=== PATIENT | female | born 1930 | race Caucasian/White ===

== ENCOUNTER 2017-12-11 16:13 | Observation (INO) | payer OTHER ==
[~2017-12-11] VITALS: Ht 167.6 cm; Wt 49.6 kg
[2017-12-11] MEDS ORDERED: ASPIRIN 81 MG CHEW TAB PO ONE ×2 (16:45→17:45)
[2017-12-11 16:52] LABS: BASOPHILS % 0.1 % (0.0-1.0); EOSINOPHILS % 0.4 % (0.0-6.0); HEMATOCRIT 40.9 % (34.2-44.1); HEMOGLOBIN 13.3 g/dL (12.0-16.0); LYMPHOCYTES # (AUTO) 1.6 (1.0-3.2); LYMPHOCYTES % 17.1 % (18.0-39.1); MEAN CORPUSCULAR HEMOGLOBIN 28.7 pg (28-32); MEAN CORPUSCULAR HGB CONC 32.5 g/dL (31-35); MEAN CORPUSCULAR VOLUME 88.1 fL (81-99); MONOCYTES # (AUTO) 0.7 (0.2-0.8); MONOCYTES % 7.4 % (4.4-11.3); NEUTROPHILS % 74.6 % (38.7-80.0); PLATELET COUNT 191 x10e3/uL (140-360); RED BLOOD COUNT 4.64 x10e6/uL (3.6-5.1); RED CELL DISTRIBUTION WIDTH 13.1 % (11.7-14.4)
[2017-12-11 17:05] LABS: INR 2.41; PARTIAL THROMBOPLASTIN TIME 38.3 seconds (23.8-35.5)
[2017-12-11] MEDS ORDERED: NIACIN500 M2 PO (17:11)
[2017-12-11] MEDS ORDERED: OSTEO BI-FLEX1 EAC2 (17:11)
[2017-12-11] MEDS ORDERED: DOCUSATE SODIU100 M1 (17:11)
[2017-12-11] MEDS ORDERED: CILOSTAZOL100 MG PO (17:11)
[2017-12-11] MEDS ORDERED: LOSARTAN POTASS25 MG (17:11)
[2017-12-11] MEDS ORDERED: METOPROLOL TART50 MG PO (17:11)
[2017-12-11] MEDS ORDERED: WARFARIN SODIUM3 MG PO (17:11)
[2017-12-11] MEDS ORDERED: LASIX20 MG PO (17:11)
[2017-12-11] MEDS ORDERED: AMIODARONE HCL200 MG (17:11)
[2017-12-11] MEDS ORDERED: POTASSIUM CHLO10 ME1 PO (17:11)
[2017-12-11 17:14] LABS: ALANINE AMINOTRANSFERASE 28 IU/L (0-55); ALBUMIN 3.8 g/dL (3.5-5.0); ALKALINE PHOSPHATASE 84 IU/L (40-150); ANION GAP 12.6 mmol/L (8-16); BLOOD UREA NITROGEN 26 mg/dL (7-26); BUN/CREATININE RATIO 25 (6-25); CALCIUM 9.7 mg/dL (8.4-10.2); CARBON DIOXIDE 29 mmol/L (22-29); CHLORIDE 91 mmol/L (98-107); CREATINE KINASE 123 IU/L (29-168); CREATININE, SERUM 1.05 mg/dL (0.57-1.11); EST GLOMERULAR FILTRATION RATE 49 ML/MIN (60-); GLUCOSE 91 mg/dL (74-118); POTASSIUM 4.6 mmol/L (3.5-5.1); SODIUM 128 mmol/L (136-145)
[2017-12-11] MEDS ORDERED: LABETALOL HCL 5 MG/ML 20ML VIAL IV STA (17:29)
[2017-12-11] MEDS ORDERED: ONDANSETRON HCL INJ 2 MG/ML VIAL IV NR (17:58)
[2017-12-11] MEDS ORDERED: MORPHINE SULFATE 5 MG/ML VIAL IV ONE (18:00)
--- NOTE | 2017-12-11 18:00 | Diagnostic Imaging Report ---
EXAMINATION: CHEST SINGLE (PORTABLE) INDICATION: Chest pain COMPARISON: None FINDINGS: TUBES and LINES: None. LUNGS: Lungs are well inflated. Lungs are clear. There is no evidence of pneumonia or pulmonary edema. PLEURA: No pleural effusion or pneumothorax. HEART AND MEDIASTINUM: The cardiomediastinal silhouette is unremarkable. The aorta is ectatic with atherosclerotic calcifications. BONES AND SOFT TISSUES: No acute osseous lesion. Soft tissues are unremarkable. UPPER ABDOMEN: No free air under the diaphragm. IMPRESSION: 1. No acute thoracic abnormality. 2. Widening of the mediastinum is related to uncoil, tortuous, atherosclerotic aorta. If acute pathology is suspected, CTA of the chest can be obtained. Signed by: Dr. Tanvir Luo M.D. on 12/11/2017 5:57 PM
[2017-12-11] MEDS ORDERED: MORPHINE SULFATE INJ 4 MG/ML INJ ONE (18:18)
[2017-12-11] MEDS ORDERED: MORPHINE SULFATE INJ 4 MG/ML INJ IV PRN (20:45)
[2017-12-11] MEDS ORDERED: LABETALOL HCL 5 MG/ML 20ML VIAL IV PRN (20:45)
[2017-12-11 21:30] VITALS: BP 152/92
[2017-12-11 22:00] VITALS: BP 152/92
[2017-12-12 02:40] LABS: CLARITY,URINE CLOUDY (CLEAR); COLOR,URINE YELLOW (YELLOW); LEUKOCYTE ESTERASE ,URINE 2+ (NEGATIVE); NITRITE,URINE POSITIVE (NEGATIVE); PROTEIN,URINE DIPSTICK NEGATIVE (NEGATIVE)
[2017-12-12 02:41] LABS: BACTERIA,URINE MANY /HPF; BILIRUBIN,URINE NEGATIVE (NEGATIVE); EPITHELIAL CELLS,URINE FEW /LPF; KETONES,URINE NEGATIVE (NEGATIVE); URINE UROBILINOGEN 0.2 mg/dL (0.2 - 1); WBC,URINE (MAN) >50 /HPF (0-5)
[2017-12-12 02:52] LABS: CREATINE KINASE 84 IU/L (29-168)
[2017-12-12 04:45] VITALS: BP 120/74
[2017-12-12 05:54] LABS: CREATINE KINASE MB 2.8 ng/mL (0-5.0)
[2017-12-12 06:00] LABS: CHOL/HDL RATIO 2.4 (3.0-3.6)
[2017-12-12 07:30] VITALS: BP 142/97
[2017-12-12] MEDS ORDERED: ACETAMINOPHEN 325 MG TAB PO PRN (08:15)
[2017-12-12 08:44] LABS: THYROID STIMULATING HORMONE 1.889 uIU/mL (0.350-4.940)
[2017-12-12] MEDS ORDERED: MAGNESIUM HYDROXIDE 30 ML UDC PO PRN (08:45)
[2017-12-12] MEDS ORDERED: BISACODYL 10 MG SUPP PR PRN (08:45)
[2017-12-12] MEDS: AMIODARONE HCL 200 MG TAB PO SCH ×2 (08:58→17:00)
[2017-12-12] MEDS: FUROSEMIDE 20 MG TAB PO SCH ×2 (08:58→17:00)
[2017-12-12] MEDS: LOSARTAN POTASSIUM 25 MG TAB PO SCH ×2 (08:59→17:00)
[2017-12-12] MEDS: POTASSIUM CHLORIDE 10MEQ EA PO SCH ×2 (09:00→17:00)
[2017-12-12] MEDS: CILOSTAZOL 100 MG TAB PO SCH ×2 (09:00→17:00)
[2017-12-12] MEDS: SENNOSIDES 8.6 MG TAB PO SCH ×3 (09:00→17:00)
[2017-12-12] MEDS: METOPROLOL TARTRATE 50 MG TAB PO SCH ×2 (09:01→17:00)
[2017-12-12] MEDS: NIACIN 500 MG TABSR PO SCH ×2 (09:01→19:04)
--- NOTE | 2017-12-12 10:38 | History and Physical ---
CHIEF COMPLAINT: Chest pressure and pain. HISTORY OF PRESENT ILLNESS: Patient is an 87-year-old female with hypertension, COPD, CVA with atrial fibrillation, osteoarthritis on anticoagulant therapy, came in with nonradiating chest pressure. No nausea or vomiting. The patient complained of reflux and constipation. She is otherwise stable. Cardiac enzyme has been negative. The patient has been drinking quite a bit of water. Her sodium level is low. The patient is otherwise stable at this time. PAST MEDICAL HISTORY: Atrial fibrillation, hypertension, COPD, osteoarthritis, CVA, left eye retinal occlusion, blind, urinary incontinence. PAST SURGICAL HISTORY: Appendectomy, hysterectomy, , and hammertoe surgery. SOCIAL HISTORY: Patient does not smoke or use alcohol. She has very good family support. ALLERGIES: TO SULFA. HOME MEDICATIONS: Amiodarone, cilostazol, Colace, Lasix, losartan, metoprolol tartrate, and warfarin 10 mg daily. PHYSICAL EXAMINATION VITAL SIGNS: Temperature is 98, blood pressure 142/97, pulse rate is 82 to 104, atrial fibrillation, respirations 18. GENERAL: The patient is not in acute distress. She is awake. HEENT: Normocephalic and atraumatic. Sclerae anicteric. NECK: Supple grossly. PULMONARY: Diminished breath sounds without any wheezing. CARDIOVASCULAR: S1 and S2, atrial fibrillation. ABDOMEN: Soft, nontender, no distention. EXTREMITIES: No cyanosis or edema. NEUROLOGIC: No focal deficit. IMAGING: Chest x-ray, no acute thoracic abnormality. Widening of the mediastinum is related to uncoiled tortuous atherosclerotic aorta. LABORATORIES: WBC is 9.4, hemoglobin 13.3, hematocrit 41, platelets 191. Chemistry; sodium is 128, potassium 4.6, chloride 91, bicarb 29. BUN is 26, creatinine 1.0, and glucose is 91. IMPRESSION 1. Chest pressure, atypical. Cardiac enzymes negative. 2. Widening of mediastinum on chest x-ray, unclear. CTA still pending. 3. Hyponatremia secondary to overconsumption of water secondary to reflux and constipation. 4. Multiple chronic baseline problems including atrial fibrillation, on anticoagulant therapy. PLAN: Stool management. CTA of the chest. Resume home medication. If the CTA of the chest is stable, the patient should be able to go home. She wants to do a stress test as an outpatient with her cat operator. Patient is otherwise stable. We will follow up with CTA of the chest. Job#: [id number] SRINIVASA
--- NOTE | 2017-12-12 10:51 | Diagnostic Imaging Report ---
EXAM: Right upper quadrant abdominal ultrasound INDICATION: Right upper quadrant pain COMPARISON: None. TECHNIQUE: Transverse and longitudinal images of the right upper quadrant abdomen were obtained FINDINGS: Liver: Size: Measures 16 cm in the right midclavicular line, normal Appearance: Normal echogenicity, smooth contour Mass: No focal masses Gallbladder: Multiple gallstones. Negative reported sonographic Koroma's sign. No evidence of wall thickening or pericholecystic fluid. Gallbladder wall measures 0.2 cm. Bile Ducts: Intrahepatic Ducts: No dilatation Extrahepatic Ducts: Common bile duct measures 0.6 cm, no dilatation Pancreas: Visualized portions of the pancreatic head, neck and proximal body are normal. Kidney: The right kidney measures 10.1 cm without evidence of hydronephrosis or stone. Vessels: Aorta: Atherosclerotic changes are noted. Inferior Vena Cava: Visualized portions are normal Main Portal Vein: Measures 1.2 cm, normal size with hepatopetal flow. Free Fluid: No ascites or pleural effusion IMPRESSION: Cholelithiasis without sonographic evidence of cholecystitis. Signed by: Dr. Doug Yi MD on 12/12/2017 10:47 AM
--- NOTE | 2017-12-12 12:06 | Consultation ---
DATE OF CONSULTATION: December 11, 2017 REASON FOR CONSULTATION: Chest pain. CONSULTING PHYSICIAN: Davy Ruiz MD HISTORY OF PRESENT ILLNESS: This is a frail, 87-year-old female that presented with chest pain. According to the patient, she lives at home alone, but the daughter comes by to help her. She is blind on the left eye and is homebound. She has been having chest pain x3 to 4 days that got worse yesterday that she decided to call EMS. She described it as a tight chest pain on a scale of 10/10. She felt like an elephant was sitting at the center of her heart with no radiation that she had to come in for evaluation. She denied any palpitation, any dizziness, any diaphoresis, or headaches. Troponin was negative. EKG showed AFib, irregularly irregular. She has a history of AFib, on Coumadin and her blindstitch lining feller is Dr. Grigsby at [facility]. BNP 405. PAST MEDICAL HISTORY 1. Hypertension. 2. COPD. 3. CVA. 4. Atrial fibrillation. 5. Osteoarthritis. 6. UTI. 7. Left eye blindness. PAST SURGICAL HISTORY: Appendectomy, hysterectomy, , and hammertoes x2. FAMILY HISTORY: Noncontributory. SOCIAL HISTORY: No smoking. No drinking. She lives at home alone. MEDICATIONS: She was on amiodarone, cilostazol, Lasix, losartan, metoprolol, niacin, potassium, and Coumadin. ALLERGIES: SHE IS ALLERGIC TO SULFA. REVIEW OF SYSTEMS: Negative except those mentioned above. She is positive for severe chest pain. PHYSICAL EXAMINATION VITAL SIGNS: Temperature 96, heart rate 93, blood pressure 120/74, respirations 20, oxygen saturation 96% on 2 liters nasal cannula. GENERAL: She is awake, alert, and oriented x3. HEENT: Mucous membrane moist. NECK: Supple. LUNGS: Bilaterally clear to auscultation. CARDIOVASCULAR: Irregularly irregular. ABDOMEN: Soft. NEUROLOGIC: Intact. EXTREMITIES: No edema. LABORATORY DATA: Sodium 128, potassium 4.6, chloride 91, CO2 of 29, BUN 26, creatinine 1.05, glucose 91, white blood cells 9.41. Hemoglobin 13.3, hematocrit 40.9, platelet 191, PT 28.0, PTT 38.3, INR 2.41. IMPRESSION Chest pain. Hyponatremia. Atrial fibrillation. Hypertension. History of osteoarthritis. PLAN: She is pending an echocardiogram to assess the LV and the valve function. She had a chest x-ray that showed widening of the mediastinum related to uncoiled atherosclerotic aorta. We will go ahead and get a CT angiogram of the chest to rule out any PE. We will continue her home medications. Her heart rate fluctuates and she is on Coumadin with therapeutic INR. Possible outpatient stress test. Further cardiac workup, pending clinical course. Thank you for this consultation. DICTATED BY: RANJAN CHACON NP Job#: [id number] SRINIVASA
--- NOTE | 2017-12-12 12:26 | Diagnostic Imaging Report ---
CTA of the chest, with contrast. Clinical history: Chest pain; family history of aortic aneurysm Comparison: None. Technique: Multidetector CT scanning of the chest was performed from the level of the thoracic inlet to the upper abdomen after intravenous administration of 100 cc of Isovue 370. No oral contrast was given. Coronal and sagittal multiplanar reformations were obtained. Findings: Aorta and proximal branches: Mild calcified and non-calcified atherosclerotic changes of the thoracic aorta and branch vessels. No evidence of ascending thoracic aortic dissection. There is an apparent linear filling defect in the distal descending thoracic aorta on axial series 3, image 93 and sagittal series 400 image 56. This may represent a focal dissection flap. This flap is not seen proximally or distally. Likely mixing artifact is present elsewhere in the descending thoracic aorta, for example on series 3, image 69. There is no evidence of periaortic hematoma. There is preservation of the sinotubular junction. The aortic arch and descending thoracic aorta are normal. The common carotid arteries bilaterally are tortuous. Ectatic thoracic aorta at the arch without evidence of aneurysm. Measurements of the aorta are as follows: 3.2 cm at the sinuses of Valsalva, 3.8 cm in the ascending aorta, 3.9 cm in the mid aortic arch, 2.8 cm in the proximal descending aorta, 2.8 cm in the mid descending aorta, 2.4 cm at the level of the diaphragmatic hiatus. Scattered coronary atherosclerosis. Dilated main pulmonary artery measuring up to 3.5 cm, suggestive of pulmonary arterial hypertension. Chest: The mediastinum is normal without evidence of adenopathy. The central airways are patent. Biapical pleural parenchymal opacity. Scattered bronchial wall thickening. There is a 2 mm calcified granuloma in the right lower lobe on image 74. The soft tissues and osseous structures are intact. Limited evaluation of the upper abdomen demonstrates normal adrenal glands. Atherosclerotic changes of the upper abdominal aorta. 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 Simple appearing cyst in the left upper pole kidney. 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 The apparent flap is seen on a single axial slice, and its unclear if this is a true finding or artifactual. A repeat CTA is suggested in 24 hours to assess for the presence of the same finding. Thoracic aortic ectasia measuring up to 3.9 cm at the aortic arch without evidence of aneurysm. Above findings discussed with Davy Ruiz MD on 12/12/17 at 1220 PM, who indicated that the communication was understood. Signed by: Dr. Doug Yi MD on 12/12/2017 12:23 PM
[2017-12-12 12:33] VITALS: BP 160/107
[2017-12-12 14:39] VITALS: BP 160/107
[2017-12-12 16:30] VITALS: BP 179/105
[2017-12-12] MEDS ORDERED: WARFARIN SOD 5 MG TAB PO SCH (17:00)
[2017-12-12] MEDS ORDERED: IOPAMIDOL 370 MG/ML 200 ML INFUS..BTL INJ ONE (17:56)
[2017-12-12] MEDS ORDERED: SODIUM CHLORIDE 0.9% 50ML 50 ML ONE (17:56)
== END 2017-12-12 19:11 | disposition home or self-care (01) ==
LOC: ER 16:13 → ERHOLD 17:51 → MED/SURG 21:02
PROVIDERS: ADMIT Internal Medicine; ATTEND Internal Medicine
DX: R07.89 Other chest pain (principal); I48.91 Unspecified atrial fibrillation; I10 Essential (primary) hypertension; J44.9 Chronic obstructive pulmonary disease, unspecified; Z86.73 Personal history of transient ischemic attack (TIA), and cerebral infarction without residual deficits; M19.90 Unspecified osteoarthritis, unspecified site; Z79.01 Long term (current) use of anticoagulants; Z88.2 Allergy status to sulfonamides; E87.1 Hypo-osmolality and hyponatremia; K21.9 Gastro-esophageal reflux disease without esophagitis; K59.00 Constipation, unspecified; I08.1 Rheumatic disorders of both mitral and tricuspid valves
CPT/HCPCS: 36415; 71045; 71275; 76705; 80053; 80061; 81001; 82550 ×2; 82553 ×2; 83735; 83880; 84443; 84484 ×2; 85025; 85610; 85730; 93005; 93306; 99284; G0378 ×2; J2270 ×2; J2405; J3490; Q9967